=== PATIENT | male | born 1990 | race Hispanic/Latino ===

== ENCOUNTER 2022-08-27 23:09 | Emergency (ER) | payer OTHER ==
[2022-08-27] MEDS ORDERED: Boostrix 0.5 ML (Tdap) VIAL (>/=7 yrs of age) ONE (23:29)
[2022-08-27] MEDS ORDERED: Cephalexin 250 MG CAP ONE (23:40)
== END 2022-08-27 23:43 | disposition home or self-care (01) ==
LOC: BURERS 23:09
DX: S80.852A Superficial foreign body, left lower leg, initial encounter (principal); W22.8XXA Striking against or struck by other objects, initial encounter
CPT/HCPCS: 90471; 90715